=== PATIENT | female | born 1995 | race African-American/Black ===

== ENCOUNTER 2018-08-18 10:43 | Inpatient (IN) | payer MEDICAID ==
[2018-08-18] MEDS: LACTATED RINGER'S 1,000 ML IV ×4 (12:25→23:54)
[2018-08-18 13:41] LABS: ADD UMIC NO; UR ASCORBIC ACID NEGATIVE (NEGATIVE); UR BILIRUBIN (Dip) NEGATIVE (NEGATIVE); UR BLOOD (Dip) NEGATIVE (NEGATIVE); UR CLARITY CLEAR (CLEAR); UR COLOR YELLOW (YELLOW); UR GLUCOSE (Dip) NEGATIVE (NEGATIVE); UR KETONES (Dip) NEGATIVE (NEGATIVE); UR LEUKOCYTE ESTERASE (Dip) NEGATIVE Leu/ul (NEGATIVE); UR NITRITE (Dip) NEGATIVE (NEGATIVE); UR SPECIFIC GRAVITY (Dip) 1.009 (1.003-1.030); UR TOTAL PROTEIN (Dip) NEGATIVE (NEGATIVE); UR UROBILINOGEN (Dip) NEGATIVE (NEGATIVE)
[2018-08-18 13:53] LABS: ADD MAN DIFF? NO
[2018-08-18 13:55] LABS: BASOPHILS % 0.2 % (0.0-2.0); EOSINOPHILS # 0.1 10^3/ul (0.0-0.5); EOSINOPHILS % 2.4 % (0.0-7.0); HEMATOCRIT 37.7 % (37.0-47.0); HEMOGLOBIN 12.4 g/dl (12.0-16.0); LYMPHOCYTES % 35.9 % (15.0-51.0); MEAN CORPUSCULAR HEMOGLOBIN 28.8 pg (29.0-33.0); MEAN CORPUSCULAR HGB CONC 32.9 g/dl (32.0-37.0); MEAN CORPUSCULAR VOLUME 87.5 fl (82.0-101.0); MONOCYTE # 0.5 10^3/ul (0.3-0.9); MONOCYTES % 9.9 % (0.0-11.0); NEUTROPHIL # 2.8 10^3/ul (1.6-7.5); NEUTROPHILS % 51.2 % (39.0-77.0); PLATELET COUNT 152 10^3/UL (140-415); RED BLOOD COUNT 4.31 10^6/ul (4.20-5.40); RED CELL DISTRIBUTION WIDTH 14.4 % (11.5-14.5)
[2018-08-18 13:55] LABS: WHITE BLOOD COUNT 5.4 10^3/ul (4.8-10.8)
[2018-08-18] MEDS ORDERED: MAGNESIUM SULFATE 4 GM/100 ML 100 ML (14:09)
[2018-08-18 14:15] LABS: INR 0.96; PROTIME 12.9 Sec (11.9-14.9)
[2018-08-18 14:16] LABS: PARTIAL THROMBOPLASTIN TIME 25.6 Sec (23.0-35.0)
[2018-08-18 14:19] LABS: ALANINE AMINOTRANSFERASE 35 IU/L (13-69); ALBUMIN 3.6 g/dl (3.3-4.9); ALBUMIN/GLOBULIN RATIO 1.05; ALKALINE PHOSPHATASE 136 IU/L (42-121); ANION GAP 7 (5-13); ASPARTATE AMINO TRANSFERASE 43 IU/L (15-46); BILIRUBIN,INDIRECT 0.3 mg/dl (0-1.1); BILIRUBIN,TOTAL 0.3 mg/dl (0.2-1.3); BLOOD UREA NITROGEN 7 mg/dl (7-20); CALCIUM 9.4 mg/dl (8.4-10.2); CARBON DIOXIDE 23 mmol/L (21-31); CHLORIDE 108 mmol/L (97-110); CREATININE 0.64 mg/dl (0.44-1.00); Estimated GFR > 60 mL/min (>60); GLUCOSE 75 mg/dl (70-220); SODIUM 138 mmol/L (135-144); URIC ACID 8.4 mg/dl (3.1-7.9)
[2018-08-18] MEDS: MAGNESIUM SULFATE 4 GM/100 ML 100 ML IVPB (14:23)
[2018-08-18] MEDS ORDERED: OXYTOCIN 30 UNITS/LR 500 ML IV ×2 (14:30→19:30)
[2018-08-18] MEDS ORDERED: METHYLERGONOVINE 0.2 MG INJ IM (14:30)
[2018-08-18] MEDS ORDERED: MAGNESIUM SULFATE 2 GM/50 ML 50 ML IVPB (14:30)
[2018-08-18] MEDS ORDERED: CARBOPROST 250 MCG INJ IM ×2 (14:30→19:30)
[2018-08-18] MEDS ORDERED: MISOPROSTOL 200 MCG TAB PR ×2 (14:30→19:30)
[2018-08-18] MEDS: MAGNESIUM SULFATE 20 GM/500 ML 500 ML IV (14:50)
[2018-08-18 16:04] LABS: RAPID PLASMA REAGIN NONREACTIVE (NR)
[2018-08-18] MEDS ORDERED: CEFAZOLIN 2 GM/50 ML (PMX) 50 ML IVPB ×2 (17:00→19:30)
[2018-08-18] MEDS ORDERED: morphine SULFATE/PF (10 MG/10 ML) INJ (17:14)
[2018-08-18] MEDS ORDERED: FENTAnyl 50 MCG/ML VIAL (17:14)
[2018-08-18 18:18] LABS: HEPATITIS B SURFACE ANTIGEN NEGATIVE (NEGATIVE)
[2018-08-18] MEDS ORDERED: DEXAMETHASONE 4 MG/ML 1 ML INJ (18:19)
[2018-08-18] MEDS ORDERED: ONDANSETRON 4 MG INJ (18:21)
[2018-08-18] MEDS ORDERED: NACL 0.9% 3 ML SYG IV ×2 (19:30)
[2018-08-18] MEDS ORDERED: LABETALOL HCL 20MG INJ IV (19:30)
[2018-08-18] MEDS: OXYTOCIN 30 UNITS/LR 500 ML IV ×3 (19:30→23:30)
[2018-08-18] MEDS ORDERED: LANOLIN HPA 1 PKT TOP (19:30)
[2018-08-18] MEDS ORDERED: CA GLUCONATE (GM) 10% 10ML INJ IV (19:30)
[2018-08-18] MEDS ORDERED: ZOLPIDEM 5 MG TAB PO (22:00)
[2018-08-18] MEDS ORDERED: ONDANSETRON 4 MG INJ IV (22:00)
[2018-08-18] MEDS ORDERED: HYDROmorphONE 0.5 MG/0.5 ML SYG IV ×2 (22:00)
[2018-08-18] MEDS ORDERED: NALOXONE (0.4 MG/ML) INJ IV (22:00)
[2018-08-18] MEDS: DIPHENHYDRAMINE 50 MG INJ IV (22:36)
[2018-08-18] MEDS: CEFAZOLIN 2 GM/50 ML (PMX) 50 ML IVPB (22:59)
[2018-08-18] MEDS: LABETALOL HCL 20MG INJ IV (23:53)
[2018-08-19] MEDS: MAGNESIUM SULFATE 20 GM/500 ML 500 ML IV ×3 (02:32→12:37)
[2018-08-19 02:47] LABS: MAGNESIUM 5.1 mg/dl (1.7-2.5)
[2018-08-19] MEDS: OXYTOCIN 30 UNITS/LR 500 ML IV ×3 (03:30→11:30)
[2018-08-19] MEDS: DIPHENHYDRAMINE 50 MG INJ IV (05:12)
[2018-08-19] MEDS: LACTATED RINGER'S 1,000 ML IV (05:29)
[2018-08-19] MEDS: IBUPROFEN 600 MG TAB PO ×5 (06:00→23:33)
[2018-08-19] MEDS: KETOROLAC 30 MG INJ IV ×2 (06:17→13:25)
[2018-08-19] MEDS: CEFAZOLIN 2 GM/50 ML (PMX) 50 ML IVPB ×2 (06:44→14:28)
[2018-08-19 08:44] LABS: ADD MAN DIFF? NO
[2018-08-19 08:50] LABS: WHITE BLOOD COUNT 13.1 10^3/ul (4.8-10.8)
[2018-08-19 08:50] LABS: ABNORMAL IP MESSAGE 1; BASOPHILS % 0.1 % (0.0-2.0); HEMATOCRIT 31.6 % (37.0-47.0); HEMOGLOBIN 10.7 g/dl (12.0-16.0); LYMPHOCYTES # 1.2 10^3/ul (0.8-2.9); LYMPHOCYTES % 9.3 % (15.0-51.0); MEAN CORPUSCULAR HEMOGLOBIN 29.4 pg (29.0-33.0); MEAN CORPUSCULAR HGB CONC 33.9 g/dl (32.0-37.0); MEAN CORPUSCULAR VOLUME 86.8 fl (82.0-101.0); MEAN PLATELET VOLUME 13.4 fl (7.4-10.4); MONOCYTE # 0.8 10^3/ul (0.3-0.9); MONOCYTES % 6.4 % (0.0-11.0); NEUTROPHIL # 10.9 10^3/ul (1.6-7.5); NEUTROPHILS % 83.9 % (39.0-77.0); PLATELET COUNT 163 10^3/UL (140-415); RED BLOOD COUNT 3.64 10^6/ul (4.20-5.40); RED CELL DISTRIBUTION WIDTH 14.1 % (11.5-14.5)
[2018-08-19 08:51] LABS: POSITIVE DIFF @See below
[2018-08-19 09:14] LABS: MAGNESIUM 5.6 mg/dl (1.7-2.5)
[2018-08-19 13:36] LABS: MAGNESIUM 5.5 mg/dl (1.7-2.5)
[2018-08-19] MEDS: OXYCODONE/ACETAMINOPHEN (5/325) TAB PO (22:05)
[2018-08-20] MEDS: OXYCODONE/ACETAMINOPHEN (5/325) TAB PO ×4 (02:44→20:15)
[2018-08-20] MEDS: IBUPROFEN 600 MG TAB PO ×3 (05:34→17:57)
[2018-08-21] MEDS: IBUPROFEN 600 MG TAB PO ×3 (00:47→11:39)
[2018-08-21] MEDS: OXYCODONE/ACETAMINOPHEN (5/325) TAB PO ×2 (00:47→09:09)
== END 2018-08-21 16:56 | disposition home or self-care (01) | DRG 788 ==
LOC: OBT 10:43 → L-D 10:43 → OBT 13:27 → L-D 13:20 → PP1 22:06
PROC: 10D00Z1 Extraction of Products of Conception, Low, Open Approach (ICD-10-PCS; principal; 2018-08-18 17:00)
DX: O65.5 Obstructed labor due to abnormality of maternal pelvic organs (principal); O34.211 Maternal care for low transverse scar from previous cesarean delivery; O14.14 Severe pre-eclampsia complicating childbirth; Z3A.38 38 weeks gestation of pregnancy; Z37.0 Single live birth
CPT/HCPCS: 76815; 76818; 80053; 81003; 83735; 84560; 85025; 85610; 85730; 86592; 86850; 86900; 86901; 87340; 99464